=== PATIENT | female | born 1960 | race Caucasian/White ===

== ENCOUNTER → 2016-05-20 | Outpatient (CLI) | payer OTHER | LOC: FIMAGING 09:00 | PROVIDERS: ATTEND Internal Medicine | DX: R19.00 Intra-abdominal and pelvic swelling, mass and lump, unspecified site (principal) ==

== ENCOUNTER 2016-06-19 07:29 | Day surgery (SDC) | payer OTHER ==
[2016-06-19] MEDS ORDERED: SILVER NITRATE APPLICATOR 1 APPL TP ONE (07:42)
[2016-06-19] MEDS ORDERED: BUPIVACAINE 0.25% 30 ML SDV ONE (07:42)
[2016-06-19] MEDS ORDERED: LR 1,000 ML IV SCH (08:00)
[2016-06-19] MEDS ORDERED: LR 1,000 ML IV ONE (08:20)
[2016-06-19] MEDS ORDERED: fentaNYL 100 MCG/2 ML INJ ONE (08:28)
[2016-06-19] MEDS ORDERED: PROPOFOL 200 MG/20 ML VIAL ONE (08:29)
[2016-06-19] MEDS ORDERED: SCOPOLAMINE HYDROBROMIDE 1.5 MG PATCH TD ONE (09:08)
[2016-06-19] MEDS ORDERED: MIDAZOLAM 2 MG/2 ML VIAL ONE (09:08)
--- NOTE | 2016-06-19 11:28 | GOP ---
[f rep st] OPERATIVE REPORT DATE OF OPERATION: 06/19/2016 SURGEON: Milena Cabrales MD HUMAN RESOURCES BENEFITS SPECIALIST: Ann-Marie Parks MD. ANESTHESIA: General. PREOPERATIVE DIAGNOSIS: Right adnexal mass. POSTOPERATIVE DIAGNOSIS: Right adnexal mass. PROCEDURE PERFORMED: Right salpingectomy and oophorectomy and left salpingectomy. FINDINGS: Normal uterus, possible right ovarian mass, normal fallopian tubes bilaterally, normal left fallopian tube, normal pelvic and abdominal cavity. SPECIMENS: Right ovary and bilateral fallopian tubes. ESTIMATED BLOOD LOSS: Less than 10 mL. INDICATIONS: The patient is a 55-year-old female who was having pelvic imaging for known aneurysm of the right iliac artery and was found to have a right vascular adnexal mass that was 2.5 cm in size. She had normal tumor markers and I recommended to the patient proceeding with right oophorectomy and bilateral salpingectomy. DESCRIPTION OF PROCEDURE: The patient was taken the operating room, where she was prepped and draped in normal sterile fashion in the low dorsal lithotomy position. A surgical time-out was performed, verifying the patient's name, date of , planned procedure, and site. The patient had a Contreras catheter placed in her bladder prior to the procedure. A bivalve speculum was placed in the patient's vagina. The posterior aspect of the cervix was grasped with the single-tooth tenaculum and a uterine manipulator was placed into the uterine canal. The bivalve speculum was removed. Gloves were changed. The umbilicus was injected with 0.25% Marcaine and a 10 mm incision was made with an 11 blade scalpel. The subcutaneous tissue was dissected down to the fascia. The fascia was then tented up with the Lee Ann clamps. The fascia was incised with a #15 blade scalpel and the fascia was tagged with 0 Vicryl. The peritoneum was identified and entered bluntly. A Yousuf port was placed in the patient's abdominal cavity. The patient was placed in Trendelenburg. The abdomen was insufflated. Approximately 5 cm to the right of the umbilicus and 2 cm caudad, the skin was transilluminated and injected with 0.25% Marcaine. A 5 mm incision was made with an 11 blade scalpel and a trocar was placed into the pelvic cavity under direct visualization. The same procedure was performed on the patient's left side. Visualization of the pelvic cavity revealed a normal uterus, normal fallopian tubes bilaterally. Her left ovary appeared normal, as well as essentially her right, although she may have had a small cyst that was not seen. The right ovary and fallopian tube were grasped. The IP ligament was cauterized and cut, the mesosalpinx was cauterized and cut, and the uterine ovarian ligament was cauterized and cut. The left fallopian tube was grasped and elevated. The mesosalpinx was cauterized and cut and the fallopian tube was transected at the cornu. The specimens were placed in the EndoCatch bag which was then removed from the umbilical port. The ports were then removed under direct visualization. The abdomen was desufflated. The fascia was reapproximated with 0 Vicryl. The skin was closed with 4-0 Monocryl and covered with Dermabond and Band-Aids. The bivalve speculum and single-tooth tenaculum were removed. The Contreras catheter is removed. Hemostasis was obtained. All counts were correct x2. COMPLICATIONS: None. DISPOSITION: Stable to the recovery room. /[id number]/MODL MTDD
== END 2016-06-19 12:45 | disposition home or self-care (01) ==
LOC: FSGY 07:29
PROVIDERS: ATTEND Obstetrics & Gynecology
DX: N83.9 Noninflammatory disorder of ovary, fallopian tube and broad ligament, unspecified (principal); M41.9 Scoliosis, unspecified
CPT/HCPCS: J2250; J2704; J3010

== ENCOUNTER → 2016-12-17 | Outpatient (CLI) | payer OTHER | LOC: FIMAGING 18:09 | PROVIDERS: ATTEND Nurse Practitioner Adult Health | DX: R00.0 Tachycardia, unspecified (principal); R60.0 Localized edema ==

== ENCOUNTER → 2016-12-22 | Outpatient (CLI) | payer OTHER | LOC: FIMAGING 08:49 | PROVIDERS: ATTEND Radiology Diagnostic Radiology | PROC: CG4 Nuclear Medicine, Endocrine System, Nonimaging Nuclear Medicine Uptake (ICD-10-PCS; principal; 2016-12-22) | DX: E05.90 Thyrotoxicosis, unspecified without thyrotoxic crisis or storm (principal); R00.0 Tachycardia, unspecified | CPT/HCPCS: 78014; A9516 ==

== ENCOUNTER → 2017-01-12 | Outpatient (CLI) | payer OTHER | LOC: FIMAGING 07:32 | PROVIDERS: ATTEND Internal Medicine | DX: Z12.31 Encounter for screening mammogram for malignant neoplasm of breast (principal) | CPT/HCPCS: G0202 ==

== ENCOUNTER → 2017-03-04 | Outpatient (CLI) | payer OTHER | LOC: FIMAGING 11:02 | PROVIDERS: ATTEND Internal Medicine | DX: Z13.820 Encounter for screening for osteoporosis (principal); Z78.0 Asymptomatic menopausal state ==

== ENCOUNTER → 2018-03-19 | Outpatient (CLI) | payer OTHER | LOC: FIMAGING 07:43 | PROVIDERS: ATTEND Internal Medicine | DX: Z12.31 Encounter for screening mammogram for malignant neoplasm of breast (principal) ==

== ENCOUNTER → 2018-07-15 | Outpatient (CLI) | payer OTHER | LOC: FIMAGING 15:53 ==

== ENCOUNTER 2018-08-15 00:59 | Emergency (ER) | payer OTHER | END 2018-08-15 03:38 | disposition home or self-care (01) ==